=== PATIENT | male | born 1940 | race Caucasian/White ===

== ENCOUNTER 2018-11-12 06:15 | Inpatient (IN) | payer MEDICARE, OTHER, SELFPAY ==
[2018-10-09 13:18] VITALS: BMI 40.4
[2018-11-12] VITALS (21 sets, daily range): BP systolic 97–137; BP diastolic 54–74; PULSE 79–103; RESP 12–23; TEMP 36.1–36.8; O2SAT 88–100; BMI 40.4
--- NOTE | 2018-11-12 | DI.RAD.S_ITS ---
PROCEDURE: XR PELVIS 1-2V INDICATIONS: INTRAOPERATIVE RIGHT HIP REPLACEMENT TECHNIQUE: 1 view of the lower pelvis acquired. COMPARISON: [facility], CR, PELVIS W UNILATERAL HIP LEFT, 10/26/2015, 14:22. FINDINGS: Bones: Patient is status post interval right hip arthroplasty, with hardware components in expected positions. There is also a prior left total hip arthroplasty. The hip joint appears congruent. The visualized bony structures appear intact. Soft tissues: Overlying postoperative changes are noted. No suspicious soft tissue densities. IMPRESSION: Post surgical changes from right total hip arthroplasty with anatomic right hip alignment. Prior left hip arthroplasty with no gross abnormality seen. Dictated by: Enzo Cardenas M.D. on 11/12/2018 at 10:28 Approved by: Enzo Cardenas M.D. on 11/12/2018 at 10:29
--- NOTE | 2018-11-12 06:38 | DI.RAD.S_ITS ---
PROCEDURE: XR HIP W PEL IF DONE RT 2V INDICATIONS: prosthesis placement on right hip post operative TECHNIQUE: AP pelvis with lateral view(s) of the right hip(s). COMPARISON: None. FINDINGS: Bones: Patient is status post right total hip arthroplasty with anatomic right hip alignment. No gross hardware loosening or failure. No fracture or dislocation. Prior left hip arthroplasty is again seen with no gross abnormality. Soft tissues: The visualized bowel gas pattern is normal. No suspicious soft tissue calcifications. IMPRESSION: Post surgical changes from right total hip arthroplasty with anatomic right hip alignment. Dictated by: Enzo Cardenas M.D. on 11/12/2018 at 12:02 Approved by: Enzo Cardenas M.D. on 11/12/2018 at 12:03
[2018-11-12] MEDS: VANCOMYCIN 1,000 MG/200 ML FROZ.PIGGY 200 MG IV (07:00)
[2018-11-12] MEDS: LACTATED RINGERS 1,000 ML 42 ML IV (07:00)
[2018-11-12] MEDS: PREGABALIN 75 MG CAPSULE PO (07:03)
[2018-11-12] MEDS: ACETAMINOPHEN 325 MG TABLET 975 MG PO ×3 (07:03→21:33)
[2018-11-12] MEDS: MELOXICAM 7.5 MG TABLET 15 MG PO (07:26)
--- NOTE | 2018-11-12 07:55 | PM.PREOP ---
Pre-operative Note Interval Note Pre-op Check: Yes History & Physical Reviewed by Physician and Yes Exam Performed Changes: No
--- NOTE | 2018-11-12 07:55 | PM.OP.1 ---
Operative Date/Time/Diagnoses Date of procedure: 11/12/18 Time of procedure: 07:55 Pre-op diagnosis: right hip OA Post-op diagnosis: same Procedure & Clinicians Procedure: right total hip arthroplasty Same procedure as scheduled: Yes Indications: The patient has had progressively worsening right hip pain with radiographic changes consistent with arthritis. Non-operative management has failed and the patient has requested total hip replacement. The risks, benefits and alternatives to surgery were discussed with the patient prior to proceeding. Risks discussed included, but were not limited to, failure to relieve pain, leg length discrepancy, dislocation, stiffness, infection, nerve damage, deep venous thrombosis, pulmonary embolism, stroke, coma, heart attack, permanent paralysis and , as well as the potential need for eventual revision of the prosthetic. Surgeon: Barbara Corey Fiberglass Pipe Covering Supervisor: Estiven Bernard Anesthesia Type: General and Spinal Operative Notes Findings: Marked restricted range of motion, significant scar and adhesions, adequate stability Closure Type: primary Specimen(s): other (multiple cultures, PCR) Implants & Drains: [employer] R3 size 60, neutral 40 liner, +0 40 head, size 9 high offset anthology Applied: drain(s) Estimated Blood Loss (mL): 300 Blood products transfused: none Procedure in detail: The patient was seen in the pre-operative area, where the patient identified the right hip as the operative site and this was marked with my initials. The patient received pre-operative antibiotics and was taken to the operating room and placed on the operative table in the left lateral decubitus position after satisfactory anesthesia. A territory account executive out was performed. The right leg was prepared from the ankle to the iliac crest with ChloroPrep in the usual fashion and draped through sterile drapes. The hip was approached through an approximately 20 cm incision centered over the greater trochanter and curving gently posteriorly as it went proximally. This was carried sharply to the fascia jeri, which was divided and retracted with a self retaining retractor. The trochanteric bursa was excised with care being taken to avoid the sciatic nerve, which was identified and protected throughout the case. He had severe adhesions in his trochanteric bursa and marked thickening. The femur was meticulously mobilized from the overlying fascia. The short external rotators were incised and the capsulomuscular flap was raised and tagged for later repair. Piriformis was left intact. I meticulously mobilize the capsule and resected a portion of the labrum. The hip was dislocated, and a femoral neck osteotomy performed approximately 15 mm above the lesser trochanter. Retractors were placed around the femur. The canal was opened with a box cutting osteotome, followed by a T handled reamer and a lateralizing reamer. The chili pepper broach was then used, followed by sequential broaching until there was good stability of the broach in the femur. Retractors were placed to expose the acetabulum. The labrum and central soft tissues were removed. 2 retractors were used to retract the femur anteriorly. It was quite tight. The offset Reamer was used for the larger reamers. Reaming was performed initially going up in 2 mm increments, then 1 mm increments until good bite was obtained with an odd sized reamer. The cup 1 mm larger than the last reamer was then inserted using the appropriate anteversion guides. A trial neutral liner was placed. The broach was placed in the canal. A trial head and neck were then placed and the hip relocated and checked for leg length and stability. An intraoperative film confirmed the component position and no evidence of fracture. The patient was stable in the position of sleep, of squatting, and could be put through a range of motion with 45 degrees internal rotation without dislocation. At 90 degrees flexion, internal rotation to 60? was possible before dislocation. This was felt to be satisfactory and the appropriate components were opened, and the trials were removed. The acetabular liner was impacted into position. The final stem was then impacted into the prepared femoral canal. A brief Betadine soak was performed while trialing with head options. The hip was meticulously irrigated with normal saline. Finally the femoral head was impacted onto the stem. The acetabulum was cleared of all material and the hip relocated one final time. The capsulomuscular flap was then repaired to the greater trochanter though an awl hole using the tag sutures. The short external rotators were repaired with nonabsorbable sutures. A deep drain was placed and brought out anteriorly. The fascia jeri was closed with nonabsorbable sutures. The subcutaneous layer was closed with barbed sutures and SteriStrips. An Aquacel Ag dressing was applied and the patient was taken to recovery having tolerated the procedure well. Complications: none Condition: stable Disposition: Acute Care Plan for aftercare: The patient will be maintained on a standard total hip replacement protocol with weight bearing as tolerated and posterior hip precautions. The patient will receive Aspirin and sequential compression devices for DVT prophylaxis. The patient will be discharged home when safe for the home environment.
[2018-11-12] MEDS: CEFAZOLIN VIAL 3 GM in SODIUM CHLORIDE 0.9% 100 ML 200 ML IV ×2 (08:18→16:30)
[2018-11-12] MEDS: TRANEXAMIC ACID 1,000 MG VIAL 1000 MG INJ ×2 (08:30→10:28)
--- NOTE | 2018-11-12 08:57 | SUR.OPER ---
Lateral on padded OR bed. Gel axillary roll. Arms secured on padded armboard with pillow supporting top arm. Padded hip positioner braces x4 - anterior and posterior chest and pelvis. Additional gel pad used anterior pelvis. Gel pad under bottom leg from knee to foot and secured with tape over sheet.
[2018-11-12] MEDS: BUPIVACAINE 0.25% W/ EPI VIAL 50 ML INJ (09:09)
[2018-11-12] MEDS: BUPIVACAINE LIPOSOME 266 MG/20 ML VIAL INJ (09:12)
[2018-11-12] MEDS: POVIDONE-IODINE 15 ML, SODIUM CHLORIDE 0.9% 250 ML TOP (09:17)
[2018-11-12] MEDS: EPINEPHrine 1 MG/ML AMPUL IRR (09:29)
[2018-11-12] MEDS: ALBUTEROL/IPRATROPIUM 3 ML AMPUL INH (11:23)
[2018-11-12] MEDS: HYDROMORPHONE 2 MG INJ 0.5 MG IV ×2 (11:35→11:45)
[2018-11-12] MEDS: OXYCODONE IR 5 MG TABLET PO (11:46)
[2018-11-12] MEDS: LACTATED RINGERS 1,000 ML 125 ML IV (13:35)
[2018-11-12] MEDS: HYDROCORTISONE 2.5% CREAM 30 GM 1 APPLIC TOP (13:42)
--- NOTE | 2018-11-12 14:10 | PT.IIE ---
Current Diagnoses Morbid (severe) obesity due to excess calories (11/12/18) Obstructive sleep apnea (adult) (pediatric) (11/12/18) Chronic obstructive pulmonary disease, unspecified (11/12/18) Unspecified asthma, uncomplicated (11/12/18) Acute and chronic respiratory failure with hypoxia (11/12/18) Unilateral primary osteoarthritis, right hip (11/12/18) Cough (11/12/18) Shortness of breath (11/12/18) Encounter for other administrative examinations (11/12/18) Dependence on supplemental oxygen (11/12/18) Surgery Performed Operation Date: 11/12/18 07:45 Actual Procedures p Total Hip Arthroplasty(Right) - Barbara Corey MD Surgical History (Last Reviewed 11/12/18 @ 15:45 by Annmarie Rojas DO) H/O carpal tunnel repair (Acute) History of colonoscopy (Acute ~09/11/17) History of hernia repair (Acute) History of revision of total hip arthroplasty (Acute) S/P rotator cuff repair (Acute) Medical History (Last Reviewed 11/12/18 @ 15:45 by Annmarie Rojas DO) Acute on chronic respiratory failure with hypoxia (Acute) Anemia, iron deficiency (Acute) Aortic valve stenosis, moderate (Acute) Asthma (Acute) Atopic dermatitis (Acute) BPH (benign prostatic hyperplasia) (Acute) Bifascicular block (Acute) COPD (chronic obstructive pulmonary disease) (Acute) Cholelithiasis (Acute) Chronic kidney disease (CKD), stage III (moderate) (Acute) Colon polyps (Acute) Coronary artery calcification (Acute) Cough (Acute) DM type 2 (diabetes mellitus, type 2) (Acute) Discitis of thoracic region (Acute) Echocardiogram abnormal (Acute) Gout (Acute) Hip pain (Acute) Lung nodule (Acute) Lymph edema (Acute) Macular degeneration (Acute) Morbidly obese (Acute) Murmur (Acute) Opioid use disorder, moderate, in controlled environment, dependence (Acute) Osteoarthritis of hip (Acute) Osteoarthritis of knees, bilateral (Acute) Oxygen dependent (Acute) Pain medication agreement signed (Acute) Positive JINNY (antinuclear antibody) (Acute) Primary localized osteoarthrosis of pelvic region (Acute) Primary osteoarthritis of right hip (Acute) Prurigo nodularis (Acute) Seronegative rheumatoid arthritis (Acute) Shortness of breath (Acute) Sleep apnea treated with nocturnal BiPAP (Acute) Physical Therapy Inpatient Evaluation/Re-Eval M1 PT/OT-IP Prior Functional Status Start: 11/12/18 16:00 Freq: NEEDED Status: Active Protocol: Document 11/12/18 14:10 AB (Rec: 11/12/18 16:13 AB [id number]) Medical Review Prior Functional Status Medical History Reviewed Yes Communication able to make needs known Mobility and Gait stated that he is modified independent with all mobilities and ambulation using his hurry cane Social History Household Members spouse Living Arrangements House Number of Floors (Floors) 3 or More Floors Number of Stairs To Enter/Railing? pt stays on main level of the house; has 3 steps to enter with L rail ascending Home Environment Standard Height Toilet Tub/Shower Home Equipment Front Wheel Walker Bedside Commode Raised Toilet Seat Without Armrests Additional Social History Comment pt stated that he sleeps on his lift chair M2 PT-IP Current Condition Start: 11/12/18 16:00 Freq: NEEDED Status: Active Protocol: Document 11/12/18 14:10 AB (Rec: 11/12/18 16:13 AB [id number]) Physical Therapy Current Condition Current Condition Evaluation Date 11/12/18 Treatment Diagnosis s/p R JAYLON; difficulty in walking Onset Date 11/12/18 Precautions Posterior Hip Precautions No Hip Flexion > 90 degrees No Hip Internal Rotation No Hip Adduction Weight Bearing Status Weight Bearing Status Weight Bear as Tolerated M3 PT-IP Subjective Start: 11/12/18 16:00 Freq: NEEDED Status: Active Protocol: Document 11/12/18 14:10 AB (Rec: 11/12/18 16:13 AB [id number]) Subjective Physical Therapy Visit Type Type Initial Evaluation Visit Start Time 14:10 Visit Stop Time 15:57 Total Visit Minutes 60 Notes pt seen for split visit Number of GLUE JOINTER FEEDER Visits 0 Physical Therapy Visit Comments Patient Comments pt want to get up Therapy Pain Assessment Pain When Pain Assessed At Rest Pain Present Pain Present Pain Reported Location Right Hip Intensity 2 Scale Used Numeric (1 - 10) M4 PT-IP Mobility and Gait Start: 11/12/18 16:00 Freq: NEEDED Status: Active Protocol: Document 11/12/18 14:10 AB (Rec: 11/12/18 16:13 AB [id number]) PT-Bed Mobility Assessment Supine to Sit Supine to Sit Minimal Assistance PT-Transfer Assessment Sit to and From Stand Sit to and from Stand Minimal Assistance 1 Person Assistance Use of Upper Extremities Equipment Transfer Assistive Device Gait Belt Front Wheeled Walker Orthotic/Prosthetic Devices or Brace: No Transfers Transfer Destination Chair Transfer Technique pt ambulated and transferred to chair using FWW Transfer Ability Level of Assist Minimal Assistance 1 Person Assistance Use of Upper Extremities Comments Mobility Comments pt required min A for moving RLE to EOB. required min A for sit to stand and cues to maintain hip precautions. Gait Assessment Gait Gait Assistance Required: Contact Guard Assist Distance (Feet) 80 Able to Maintain Weight Bearing Status Yes During Gait Assistive Devices Assistive Device Gait Belt Front Wheeled Walker Orthotic/Prosthetic Devices or Brace: No Gait Deviations General Gait Pattern Antalgic Decreased Stride Length Decreased Feet Clearance Factors Limiting Gait Function Factors Limiting Gait Function Decreased Activity Tolerance Decreased Strength Limited Range of Motion Poor Balance Poor Safety Awareness PT-Balance Assessment Sitting Balance and Reactions Static Sitting Balance Ability Good Dynamic Sitting Balance Ability Good Standing Balance and Reactions Static Standing Balance Ability Fair Dynamic Standing Balance Ability Fair Device Used FWW M5 PT-IP Objective Assessments Start: 11/12/18 16:00 Freq: NEEDED Status: Active Protocol: Document 11/12/18 14:10 AB (Rec: 11/12/18 16:13 AB [id number]) Orientation Orientation/Cognition Level of Alertness Alert Orientation Name Age Birthday Month Date Year Day of Week Place Situation Safety Awareness Decreased Safety Awareness Memory Description Short Term Impaired Comments requires cues to recall hip precautions Gross Range of Motion Lower Extremity ROM Assessment Right Impaired Strength Lower Extremity Strength Assessment Right Impaired Hip 4-/5 Knee 3+/5 Sensation Assessment Sensation Gross Sensation WNL Muscle Tone Muscle Tone WNL Yes M6 PT-IP Treatment Start: 11/12/18 16:00 Freq: NEEDED Status: Active Protocol: Document 11/12/18 14:10 AB (Rec: 11/12/18 16:13 AB [id number]) Physical Therapy Treatment Education Education Provided Precautions Weight Bearing Status Post-Op Packet Safety M7 PT-IP Assessment and Plan Start: 11/12/18 16:00 Freq: NEEDED Status: Active Protocol: Document 11/12/18 14:10 AB (Rec: 11/12/18 16:13 AB [id number]) PT Summary Assessment and Plan Potential Rehabilitation Potential Fair Status of Condition at Evaluation Stable Summary Impairments Pain ROM Strength Balance Coordination Sensation Tone Cognition Bed Mobility Transfers Gait Activity Tolerance Assessment Summary pt requiring CGA to min A with transfers and ambulation and will likely progress during hospital stay. pt stated that he is set up with outpt PT. Stair climbing will be completed prior to d/c and if able to complete safely, pt may go home with spouse to assist him. Goals Bed Mobility Goal Standby Assistance Transfer Goal Standby Assistance Front Wheeled Walker Gait Goal Standby Assistance Front Wheel Walker Gait Distance 200 Other Goals up/down 3 steps with L rail ascending Days to Meet Goals 3 Frequency of Treatment Frequency Of Treatment Twice a Day Treatment Plan Physical Therapy Treatment Plan Bed Mobility Training Transfer Training Gait Training Therapeutic Exercise Balance Retraining Post Op Education Discharge Planning Hot or Cold Pack Neuromuscular Re-ed Coordination Retraining Manual Therapy Other Recommendations and Next Treatment ambulation; stair climbing Focus Recommendations To Nursing Amount of Assist Needed 1 Person Assist Discharge Recommendations PT Discharge Recommendations Home with Assistance Outpatient PT
--- NOTE | 2018-11-12 15:39 | PM.CN ---
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 Postoperatively, the patient is resting in bed comfortably and in no acute distress. He denies pain. He received both a spinal block and general anesthesia. He denies headache, any new visual disturbances, shortness of breath, chest pain, abdominal pain, nausea, vomiting, fever, chills, dysuria (although he has not voided postoperatively), diarrhea or constipation. He does endorse a mild scratchy throat. He has no other complaints at this time. [facility] Medical History Acute on chronic respiratory failure with hypoxia (Acute) Anemia, iron deficiency (Acute) Aortic valve stenosis, moderate (Acute) Asthma (Acute) Atopic dermatitis (Acute) BPH (benign prostatic hyperplasia) (Acute) Bifascicular block (Acute) COPD (chronic obstructive pulmonary disease) (Acute) Cholelithiasis (Acute) Chronic kidney disease (CKD), stage III (moderate) (Acute) Colon polyps (Acute) Coronary artery calcification (Acute) Cough (Acute) DM type 2 (diabetes mellitus, type 2) (Acute) Discitis of thoracic region (Acute) Echocardiogram abnormal (Acute) Gout (Acute) Hip pain (Acute) Lung nodule (Acute) Lymph edema (Acute) Macular degeneration (Acute) Morbidly obese (Acute) Murmur (Acute) Opioid use disorder, moderate, in controlled environment, dependence (Acute) Osteoarthritis of hip (Acute) Osteoarthritis of knees, bilateral (Acute) Oxygen dependent (Acute) Pain medication agreement signed (Acute) Positive JINNY (antinuclear antibody) (Acute) Primary localized osteoarthrosis of pelvic region (Acute) Primary osteoarthritis of right hip (Acute) Prurigo nodularis (Acute) Seronegative rheumatoid arthritis (Acute) Shortness of breath (Acute) Sleep apnea treated with nocturnal BiPAP (Acute) Surgical History H/O carpal tunnel repair (Acute) History of colonoscopy (Acute ~09/11/17) History of hernia repair (Acute) History of revision of total hip arthroplasty (Acute) S/P rotator cuff repair (Acute) Family History Mother No problems noted. Father No problems noted. Sister No problems noted. Sister No problems noted. Brother No problems noted. Social History household members: spouse Smoking Status: Former smoker alcohol intake: current Meds Home Medications Medication Instructions Recorded Confirmed Type albuterol sulfate 2 puff INHALATION PRN PRN 10/09/18 11/12/18 History allopurinol 300 mg PO DAILY 10/09/18 11/12/18 History aspirin 81 mg PO DAILY 10/09/18 11/12/18 History calcium citrate 250 mg PO BID 10/09/18 11/12/18 History diphenhydramine HCl 50 mg PO BEDTIME PRN 10/09/18 11/12/18 History furosemide 40 mg PO DAILY 10/09/18 11/12/18 History glipizide 5 mg PO BID 10/09/18 11/12/18 History hydrocodone-acetaminophen 1 tab PO Q6H PRN 10/09/18 11/12/18 History hydrocortisone 1 applic TOPICAL BID 10/09/18 11/12/18 History insulin aspart U-100 6 units SUBCUT SEEINSTR 10/09/18 11/12/18 History insulin glargine 10 unit SUBCUT QAM 10/09/18 11/12/18 History insulin glargine 20 unit SUBCUT QPM 10/09/18 11/12/18 History multivitamin 1 tab PO DAILY 10/09/18 11/12/18 History simvastatin 40 mg PO QPM 10/09/18 11/12/18 History tamsulosin 0.4 mg PO BEDTIME 10/09/18 11/12/18 History umeclidinium-vilanterol [Anoro 1 inh INHALATION Q24H 10/09/18 11/12/18 History Ellipta] vitamins A,C,S-uecm-zlnjme 2 tab PO BID 10/09/18 11/12/18 History [PreserVision AREDS] Allergies Allergy/AdvReac Type Severity Reaction Status Date / Time sulfasalazine [SULFASALAZINE] Allergy Intermediate RASH - Verified 11/12/18 07:00 POSSIBLE PER PT STATES HE CAN TAKE SULFA DRUGS insulin glargine AdvReac Unknown Shortness Verified 11/12/18 07:00 [From Victor Manuel Nava U-100 of breath Insulin] Review of Systems Review of Systems A 10 system comprehensive review of systems was conducted with the patient and found to be negative except as above in the History of Present Illness. Exam Vital Signs (past 8 hours): - 11/12/18 10:56 11/12/18 11:01 11/12/18 11:06 Temperature 97.8 F Pulse Rate 88 90 93 H Respiratory Rate 22 23 16 Blood Pressure 97/61 100/59 L 104/63 Pulse Oximetry 88 L 94 95 11/12/18 11:11 11/12/18 11:16 11/12/18 11:20 Temperature Pulse Rate 90 97 H 94 H Respiratory Rate 16 13 16 Blood Pressure 101/66 105/68 Pulse Oximetry 96 97 95 11/12/18 11:21 11/12/18 11:35 11/12/18 11:45 Temperature Pulse Rate 91 H 94 H 93 H Respiratory Rate 13 14 16 Blood Pressure 108/67 107/69 116/68 Pulse Oximetry 98 98 98 11/12/18 11:55 11/12/18 12:14 11/12/18 12:18 Temperature 97.8 F 97.8 F Pulse Rate 94 H 90 90 Respiratory Rate 14 20 19 Blood Pressure 110/66 129/57 L 129/57 L Pulse Oximetry 98 97 98 11/12/18 12:50 11/12/18 13:00 11/12/18 13:22 Temperature Pulse Rate 103 H 93 H Respiratory Rate 13 12 Blood Pressure 101/54 L 129/72 Pulse Oximetry 100 96 94 11/12/18 14:33 11/12/18 14:49 Temperature Pulse Rate 89 Respiratory Rate 23 Blood Pressure 117/68 Pulse Oximetry 91 Oxygen Delivery Method Room Air Oxygen Flow Rate 0 Narrative Exam Narrative: General: Elderly gentleman resting in bed and in no acute distress, appears comfortable and in good spirits, well-developed, well-nourished, appropriately interactive HEENT: Normocephalic, atraumatic. External ears without defect. Pupils equal, round, and reactive to light. Anicteric sclerae, moist conjunctivae, and no lid lag. Oropharynx free of erythema and cobble stoning with moist mucosa. Poor dentition. Neck: Supple with full range of motion. No jugular venous distension. No bruits. No lymphadenopathy or thyromegaly. Cardiovascular: Regular rate and rhythm with holosystolic murmur at left sternal border radiating to carotids bilaterally. No rubs or gallops appreciated. Pulmonary: Clear to auscultation bilaterally with fine crackles at bases bilaterally. No wheezes, or rhonchi. Normal respiratory effort with no use of accessory muscles. Abdomen: Bowel tones present. Soft, obese, nontender, nondistended. No hepatosplenomegaly or masses appreciated. Small umbilical hernia that is reducible. Extremities: No clubbing or cyanosis. Mild bilateral nonpitting lower extremity edema to knees bilaterally. Skin: Normal temperature, turgor, and texture; no rash or ulcers. Scattered subcutaneous nodules bilaterally on lower extremities. Neurological: Cranial nerves grossly intact. Normal muscle strength, tone, and bulk. Reflexes, coordination, and sensory function within normal limits. Psychiatric: Normal mood and affect. Alert and oriented to person, place, and time. 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 1. Right hip osteoarthritis status post total hip arthroplasty, present on admission. Active. -Received preop and postoperative antibiotics with Cefazolin. -Continue as needed pain medication. -Continue aggressive physical therapy. -Will defer to Orthopedic surgery when to initiate DVT prophylaxis with lovenox versus aspirin. 2. Moderate aortic stenosis with bifascicular heart block, present on admission. Presumed stable. -Continue cardiac meds including aspirin 81 mg daily, furosemide 40 mg daily, and simvastatin 40 mg at bedtime. -Continue to monitor closely on telemetry. 3. Probable COPD and obstructive sleep apnea, present on admission. Stable. -Continue BiPAP with 4 L O2 bled in nocturnally while sleeping. -Continue nebs including albuterol every 4 hr as needed and Anoro Ellipta 1 puff daily. 4. Diabetes mellitus type 2, insulin using, present on admission. Presume stable. -Continue Lantus 10 units every morning and 20 units every night. 5. Chronic kidney disease, present on admission. Presumed stable. -Baseline creatinine 1.8-2.0. Patient is followed in the outpatient setting by Dr. Norton of Nephrology. -Monitor creatinine daily. -Avoid nephrotoxinc agents. 6. Anemia of chronic disease, present on admission. Stable. -Secondary to chronic kidney disease. -Likely to worsen postoperatively. -Continue to monitor hemoglobin and hematocrit daily. 7. Gout, present on admission. Stable. -Continue allopurinol 300 mg daily. 8. BPH, present on admission. Stable. -Continue tamsulosin 0.4 mg at bedtime. 9. Prurigo nodularis, present on admission. Stable. -Continue hydrocortisone cream as needed. 10. Morbid obesity, present on admission. Stable. -BMI 40.4. -Ordered nutritional consult. Thank you for consulting our services will continue to follow the patient along with you.
[2018-11-12 15:40] LABS: Add Manual Diff / Slide Review NO; Basophils Percent Auto 0.6 % (0-2); Eosinophils Percent Auto 0.8 % (2-4); Hematocrit 29.2 % (41-53); Hemoglobin 9.6 g/dL (13.5-17.5); Lymphocytes Percent Auto 10.3 % (25-40); Mean Corpuscular HGB Conc 32.8 % (30-36); Mean Corpuscular Hemoglobin 32.4 PG (26-34); Mean Corpuscular Volume 98.8 fL (80-100); Monocytes Percent Auto 6.7 % (3-14); Neutrophils Absolute Auto 8400 /uL (1500-7000); Neutrophils Percent Auto 81.6 % (50-75); Platelet Count 169 X10^3/uL (150-400); Red Blood Cell Count 2.95 X10^6/uL (4.5-5.9); Red Cell Distribution Width 17.5 % (11.6-14.8); White Blood Cell Count 10.3 X10^3/uL (4.5-11.0)
--- NOTE | 2018-11-12 15:45 | P.CONS_ITS ---
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 Postoperatively, the patient is resting in bed comfortably and in no acute distress. He denies pain. He received both a spinal block and general anesthesia. He denies headache, any new visual disturbances, shortness of breath, chest pain, abdominal pain, nausea, vomiting, fever, chills, dysuria ( although he has not voided postoperatively), diarrhea or constipation. He does endorse a mild scratchy throat. He has no other complaints at this time. [facility] Medical History Acute on chronic respiratory failure with hypoxia (Acute) Anemia, iron deficiency (Acute) Aortic valve stenosis, moderate (Acute) Asthma (Acute) Atopic dermatitis (Acute) BPH (benign prostatic hyperplasia) (Acute) Bifascicular block (Acute) COPD (chronic obstructive pulmonary disease) (Acute) Cholelithiasis (Acute) Chronic kidney disease (CKD), stage III (moderate) (Acute) Colon polyps (Acute) Coronary artery calcification (Acute) Cough (Acute) DM type 2 (diabetes mellitus, type 2) (Acute) Discitis of thoracic region (Acute) Echocardiogram abnormal (Acute) Gout (Acute) Hip pain (Acute) Lung nodule (Acute) Lymph edema (Acute) Macular degeneration (Acute) Morbidly obese (Acute) Murmur (Acute) Opioid use disorder, moderate, in controlled environment, dependence (Acute) Osteoarthritis of hip (Acute) Osteoarthritis of knees, bilateral (Acute) Oxygen dependent (Acute) Pain medication agreement signed (Acute) Positive JINNY (antinuclear antibody) (Acute) Primary localized osteoarthrosis of pelvic region (Acute) Primary osteoarthritis of right hip (Acute) Prurigo nodularis (Acute) Seronegative rheumatoid arthritis (Acute) Shortness of breath (Acute) Sleep apnea treated with nocturnal BiPAP (Acute) Surgical History H/O carpal tunnel repair (Acute) History of colonoscopy (Acute ~09/11/17) History of hernia repair (Acute) History of revision of total hip arthroplasty (Acute) S/P rotator cuff repair (Acute) Family History Mother No problems noted. Father No problems noted. Sister No problems noted. Sister No problems noted. Brother No problems noted. Social History household members: spouse Smoking Status: Former smoker alcohol intake: current Meds Home Medications Medication Instructions Recorded Confirmed Type albuterol sulfate 2 puff INHALATION PRN PRN 10/09/18 11/12/18 History allopurinol 300 mg PO DAILY 10/09/18 11/12/18 History aspirin 81 mg PO DAILY 10/09/18 11/12/18 History calcium citrate 250 mg PO BID 10/09/18 11/12/18 History diphenhydramine HCl 50 mg PO BEDTIME PRN 10/09/18 11/12/18 History furosemide 40 mg PO DAILY 10/09/18 11/12/18 History glipizide 5 mg PO BID 10/09/18 11/12/18 History hydrocodone-acetaminophen 1 tab PO Q6H PRN 10/09/18 11/12/18 History hydrocortisone 1 applic TOPICAL BID 10/09/18 11/12/18 History insulin aspart U-100 6 units SUBCUT SEEINSTR 10/09/18 11/12/18 History insulin glargine 10 unit SUBCUT QAM 10/09/18 11/12/18 History insulin glargine 20 unit SUBCUT QPM 10/09/18 11/12/18 History multivitamin 1 tab PO DAILY 10/09/18 11/12/18 History simvastatin 40 mg PO QPM 10/09/18 11/12/18 History tamsulosin 0.4 mg PO BEDTIME 10/09/18 11/12/18 History umeclidinium-vilanterol [Anoro 1 inh INHALATION Q24H 10/09/18 11/12/18 History Ellipta] vitamins A,C,N-[id number]-[id number] 2 tab PO BID 10/09/18 11/12/18 History [PreserVision AREDS] Allergies Allergy/AdvReac Type Severity Reaction Status Date / Time sulfasalazine [SULFASALAZINE] Allergy Intermediate RASH - Verified 11/12/18 07: 00 POSSIBLE PER PT STATES HE CAN TAKE SULFA DRUGS insulin glargine AdvReac Unknown Shortness Verified 11/12/18 07:00 [From Victor Manuel Nava U-100 of breath Insulin] Review of Systems Review of Systems A 10 system comprehensive review of systems was conducted with the patient and found to be negative except as above in the History of Present Illness. Exam Vital Signs (past 8 hours): - 11/12/18 10:56 11/12/18 11:01 11/12/18 11:06 Temperature 97.8 F Pulse Rate 88 90 93 H Respiratory Rate 22 23 16 Blood Pressure 97/61 100/59 L 104/63 Pulse Oximetry 88 L 94 95 11/12/18 11:11 11/12/18 11:16 11/12/18 11:20 Temperature Pulse Rate 90 97 H 94 H Respiratory Rate 16 13 16 Blood Pressure 101/66 105/68 Pulse Oximetry 96 97 95 11/12/18 11:21 11/12/18 11:35 11/12/18 11:45 Temperature Pulse Rate 91 H 94 H 93 H Respiratory Rate 13 14 16 Blood Pressure 108/67 107/69 116/68 Pulse Oximetry 98 98 98 11/12/18 11:55 11/12/18 12:14 11/12/18 12:18 Temperature 97.8 F 97.8 F Pulse Rate 94 H 90 90 Respiratory Rate 14 20 19 Blood Pressure 110/66 129/57 L 129/57 L Pulse Oximetry 98 97 98 11/12/18 12:50 11/12/18 13:00 11/12/18 13:22 Temperature Pulse Rate 103 H 93 H Respiratory Rate 13 12 Blood Pressure 101/54 L 129/72 Pulse Oximetry 100 96 94 11/12/18 14:33 11/12/18 14:49 Temperature Pulse Rate 89 Respiratory Rate 23 Blood Pressure 117/68 Pulse Oximetry 91 Oxygen Delivery Method Room Air Oxygen Flow Rate 0 Narrative Exam Narrative: General: Elderly gentleman resting in bed and in no acute distress, appears comfortable and in good spirits, well-developed, well- nourished, appropriately interactive HEENT: Normocephalic, atraumatic. External ears without defect. Pupils equal, round, and reactive to light. Anicteric sclerae, moist conjunctivae, and no lid lag. Oropharynx free of erythema and cobble stoning with moist mucosa. Poor dentition. Neck: Supple with full range of motion. No jugular venous distension. No bruits. No lymphadenopathy or thyromegaly. Cardiovascular: Regular rate and rhythm with holosystolic murmur at left sternal border radiating to carotids bilaterally. No rubs or gallops appreciated. Pulmonary: Clear to auscultation bilaterally with fine crackles at bases bilaterally. No wheezes, or rhonchi. Normal respiratory effort with no use of accessory muscles. Abdomen: Bowel tones present. Soft, obese, nontender, nondistended. No hepatosplenomegaly or masses appreciated. Small umbilical hernia that is reducible. Extremities: No clubbing or cyanosis. Mild bilateral nonpitting lower extremity edema to knees bilaterally. Skin: Normal temperature, turgor, and texture; no rash or ulcers. Scattered subcutaneous nodules bilaterally on lower extremities. Neurological: Cranial nerves grossly intact. Normal muscle strength, tone, and bulk. Reflexes, coordination, and sensory function within normal limits. Psychiatric: Normal mood and affect. Alert and oriented to person, place, and time. 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 1. Right hip osteoarthritis status post total hip arthroplasty, present on admission. Active. -Received preop and postoperative antibiotics with Cefazolin. -Continue as needed pain medication. -Continue aggressive physical therapy. -Will defer to Orthopedic surgery when to initiate DVT prophylaxis with lovenox versus aspirin. 2. Moderate aortic stenosis with bifascicular heart block, present on admission. Presumed stable. -Continue cardiac meds including aspirin 81 mg daily, furosemide 40 mg daily , and simvastatin 40 mg at bedtime. -Continue to monitor closely on telemetry. 3. Probable COPD and obstructive sleep apnea, present on admission. Stable. -Continue BiPAP with 4 L O2 bled in nocturnally while sleeping. -Continue nebs including albuterol every 4 hr as needed and Anoro Ellipta 1 puff daily. 4. Diabetes mellitus type 2, insulin using, present on admission. Presume stable. -Continue Lantus 10 units every morning and 20 units every night. 5. Chronic kidney disease, present on admission. Presumed stable. -Baseline creatinine 1.8-2.0. Patient is followed in the outpatient setting by Dr. Norton of Nephrology. -Monitor creatinine daily. -Avoid nephrotoxinc agents. 6. Anemia of chronic disease, present on admission. Stable. -Secondary to chronic kidney disease. -Likely to worsen postoperatively. -Continue to monitor hemoglobin and hematocrit daily. 7. Gout, present on admission. Stable. -Continue allopurinol 300 mg daily. 8. BPH, present on admission. Stable. -Continue tamsulosin 0.4 mg at bedtime. 9. Prurigo nodularis, present on admission. Stable. -Continue hydrocortisone cream as needed. 10. Morbid obesity, present on admission. Stable. -BMI 40.4. -Ordered nutritional consult. Thank you for consulting our services will continue to follow the patient along with you.
[2018-11-12] MEDS: SIMVASTATIN 40 MG TABLET PO (16:30)
--- NOTE | 2018-11-12 19:38 | PC.NURSE ---
1914- Patient only voided 200ml urine since noon. Bladder scan shows greater than 900ml in bladder. Straight cathed for 650ml. Patient tolerated well.
[2018-11-12] MEDS: ASPIRIN EC 81 MG TABLET PO (21:34)
[2018-11-12] MEDS: DOCUSATE 100 MG CAPSULE PO (21:34)
[2018-11-12] MEDS: INSULIN GLARGINE 100 UNIT/ML 3ML PEN 20 UNIT SUBCUT (21:35)
[2018-11-12] MEDS: TAMSULOSIN 0.4 MG CAPSULE PO (21:36)
[2018-11-13] MEDS: CEFAZOLIN VIAL 3 GM in SODIUM CHLORIDE 0.9% 100 ML 200 ML IV (00:42)
[2018-11-13 02:53] VITALS: O2SAT 95
[2018-11-13 04:34] VITALS: BP 123/65; PULSE 81; RESP 20; TEMP 36.4; O2SAT 94
[2018-11-13 05:02] LABS: Add Manual Diff / Slide Review NO; Basophils Percent Auto 0.3 % (0-2); Hematocrit 26.8 % (41-53); Hemoglobin 8.9 g/dL (13.5-17.5); Lymphocytes Percent Auto 13.5 % (25-40); Mean Corpuscular HGB Conc 33.2 % (30-36); Mean Corpuscular Volume 99.4 fL (80-100); Neutrophils Absolute Auto 6100 /uL (1500-7000); Neutrophils Percent Auto 76.2 % (50-75); Platelet Count 159 X10^3/uL (150-400); Red Cell Distribution Width 17.4 % (11.6-14.8)
[2018-11-13 05:06] LABS: Alanine Aminotransferase 25 IU/L (21-72); Albumin 3.3 g/dL (3.5-5.0); Alkaline Phosphatase 58 U/L (38-126); Aspartate Aminotransferase 47 IU/L (17-59); BUN Creatinine Ratio 17.8 (6-22); Bilirubin Total 0.3 mg/dL (0.2-1.3); Blood Urea Nitrogen 32 mg/dL (9-20); Calcium 8.3 mg/dL (8.4-10.2); Carbon Dioxide 28 mmol/L (22-32); Chloride 102 mmol/L (98-107); Estimated Glomerular Filt Rate 36.5 mL/min (>60); Globulin 3.2 g/dL (1.7-4.1); Glucose 112 mg/dL (80-110); HEMOLYSIS < 15 (0-50); Potassium 4.7 mmol/L (3.4-5.1); Sodium 139 mmol/L (137-145); Total Protein 6.5 g/dL (6.3-8.2)
[2018-11-13 07:55] VITALS: BP 129/67; PULSE 86; RESP 18; TEMP 37.4; O2SAT 98
[2018-11-13] MEDS: ACETAMINOPHEN 325 MG TABLET 975 MG PO ×2 (07:59→14:31)
[2018-11-13] MEDS: OXYCODONE IR 5 MG TABLET PO ×3 (07:59→14:33)
[2018-11-13 08:49] VITALS: O2SAT 94
[2018-11-13] MEDS: DOCUSATE 100 MG CAPSULE PO (10:03)
[2018-11-13] MEDS: HYDROCORTISONE 2.5% CREAM 30 GM 1 APPLIC TOP (10:03)
[2018-11-13] MEDS: FUROSEMIDE 40 MG TABLET PO (10:05)
[2018-11-13] MEDS: ASPIRIN EC 81 MG TABLET PO (10:06)
[2018-11-13] MEDS: INSULIN GLARGINE 100 UNIT/ML 3ML PEN 10 UNIT SUBCUT (10:06)
[2018-11-13] MEDS: ALLOPURINOL 300 MG TABLET PO (10:06)
[2018-11-13] MEDS: MULTIVITAMIN 1 TABLET 1 TAB PO (10:06)
[2018-11-13] MEDS: UMECLIDINIUM/VILANTEROL 62.5/2 14 PUFF INHALER INH (10:07)
--- NOTE | 2018-11-13 11:03 | P.PN_ITS ---
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 Overnight the patient was stable. He is slightly more anemic today which is to be expected after a total hip replacement. He participated in physical therapy postoperatively and was able to weightbear/toe touch in the room. Today the patient is resting in bed comfortably and in no acute distress. He denies headache, sore throat, cough, shortness of breath, chest pain, abdominal pain, nausea, vomiting, fever, chills, dysuria, diarrhea or constipation. He reports pain after his spinal block wore off. He reports his pain level is at a + 0 out of 10 after as needed pain medication. He is voiding without difficulty. He has not had a bowel movement postoperatively but is flatulence. He continues to work with physical therapy. Exam Vital Signs (past 8 hours): - 11/13/18 04:34 11/13/18 07:55 11/13/18 08:49 Temperature 97.5 F L 99.4 F Pulse Rate 81 86 Respiratory Rate 20 18 Blood Pressure 123/65 129/67 Pulse Oximetry 94 98 94 Oxygen Delivery Method Room Air Oxygen Flow Rate 0 Narrative Exam Narrative: General: Elderly gentleman resting in bed and in no acute distress, appears comfortable and in good spirits, well-developed, well- nourished, appropriately interactive HEENT: Normocephalic, atraumatic. External ears without defect. Pupils equal, round, and reactive to light. Anicteric sclerae, moist conjunctivae, and no lid lag. Oropharynx free of erythema and cobble stoning with moist mucosa. Poor dentition. Neck: Supple with full range of motion. No jugular venous distension. No bruits. No lymphadenopathy or thyromegaly. Cardiovascular: Regular rate and rhythm with holosystolic murmur at left sternal border radiating to carotids bilaterally. No rubs, or gallops appreciated. Pulmonary: Clear to auscultation bilaterally with fine crackles at bases. No wheezes, or rhonchi. Normal respiratory effort with no use of accessory muscles. Abdomen: Bowel tones present. Soft, obese, nontender, nondistended. No hepatosplenomegaly or masses appreciated. Small umbilical hernia that is reducible. Extremities: No clubbing or cyanosis. Mild bilateral non-pitting lower extremity edema to knees bilaterally. Skin: Normal temperature, turgor, and texture; no rash or ulcers. Scattered subcutaneous nodules bilaterally on lower extremities. Neurological: Cranial nerves grossly intact. Psychiatric: Normal mood and affect. Alert and oriented to person, place, and time. Objective Labs Result Diagrams: 11/13/18 04:35 11/13/18 04:35 Labs: Laboratory Results - last 24 hr 11/12/18 11/13/18 11/13/18 15:08 04:35 04:35 WBC 10.3 8.0 RBC 2.95 L 2.70 L Hgb 9.6 L 8.9 L Hct 29.2 L 26.8 L MCV 98.8 99.4 MCH 32.4 33.0 MCHC 32.8 33.2 RDW 17.5 H 17.4 H Plt Count 169 159 Neut % (Auto) 81.6 H 76.2 H Lymph % (Auto) 10.3 L 13.5 L [place] % (Auto) 6.7 7.0 Eos % (Auto) 0.8 L 3.0 Baso % (Auto) 0.6 0.3 Neut # (Auto) 8400 H 6100 Sodium 139 Potassium 4.7 Chloride 102 Carbon Dioxide 28 BUN 32 H Creatinine 1.80 H Estimated GFR 36.5 L BUN/Creatinine Ratio 17.8 Glucose 112 H Calcium 8.3 L Total Bilirubin 0.3 AST 47 ALT 25 Alkaline Phosphatase 58 Total Protein 6.5 Albumin 3.3 L Globulin 3.2 Albumin/Globulin Ratio 1.0 Assessment & Plan Plan: Assessment/Plan Narrative: Brian Link is an 78-year-old male with a past medical history significant for diabetes mellitus type 2, insulin using, chronic kidney disease stage 3, hyperlipidemia, unclear lung disease and obstructive sleep apnea on BiPAP with 4 L of O2 nocturnally, morbid obesity, and 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 He was admitted for planned surgery for osteoarthritis of right hip now status post right total hip replacement. Hospital Medicine was consulted for management of medical problems. 1. Right hip osteoarthritis status post total hip arthroplasty, present on admission. Active. -Received preop and postoperative antibiotics with Cefazolin. -Continue as needed pain medication. -Continue aggressive physical therapy. -Will defer VTE prophylaxis to Orthopedic surgery, currently on aspirin 81 mg twice daily. 2. Moderate aortic stenosis with bifascicular heart block, present on admission. Presumed stable. -Continue cardiac meds including aspirin 81 mg daily, furosemide 40 mg daily , and simvastatin 40 mg at bedtime. Followed outpatient by Dr. Oliva of Cardiology. -Continue to monitor closely on telemetry. 3. Probable COPD and obstructive sleep apnea, present on admission. Stable. -Continue BiPAP with 4 L O2 bled in nocturnally while sleeping. -Continue nebs including albuterol every 4 hr as needed and Anoro Ellipta 1 puff daily. 4. Diabetes mellitus type 2, insulin using, present on admission. Presume stable. -Continue Lantus 10 units every morning and 20 units every night. 5. Chronic kidney disease, present on admission. Presumed stable. -Baseline creatinine 1.8-2.0. Patient is followed in the outpatient setting by Dr. Norton of Nephrology. -Monitor creatinine daily. -Avoid nephrotoxinc agents. 6. Anemia of chronic disease, present on admission. Stable. -Secondary to chronic kidney disease and now acute blood loss. -Hemoglobin trending down as to be expected postoperatively from total hip replacement. -Continue to monitor hemoglobin and hematocrit daily. 7. Gout, present on admission. Stable. -Continue allopurinol 300 mg daily. 8. BPH, present on admission. Stable. -Continue tamsulosin 0.4 mg at bedtime. 9. Prurigo nodularis, present on admission. Stable. -Continue hydrocortisone cream as needed. 10. Morbid obesity, present on admission. Stable. -BMI 40.4. -Ordered nutritional consult. Thank you for consulting our services will continue to follow the patient along with you. Quality VTE Deep Vein Thrombosis/Pulmonary Embolism Present on Admission: No
--- NOTE | 2018-11-13 11:58 | PM.DS.1 ---
History of Present Illness Date Patient Seen: 11/13/18 Time Patient Seen: 10:19 Chief complaint: [id number] Narrative: Patient is seen bedside status post right total hip replacement on 11/11/[address] Corey. Patient is doing well, he has been up now with physical therapy and his pain is controlled. His vital signs have been stable overnight. He denies chest pain shortness of breath or calf pain. He would like to go home today. Discharge Providers Date of admission: 11/12/18 06:15 Consults: 10/09/18 15:03 Consult to Respiratory Therapy Evaluate & Treat Comment: NELSY on BiPAP - Will bring Physician Instructions: Evaluate and treat Consult to Personnel Scheduler Routine Comment: Pain med contract 11/12/18 06:38 Consult to Anesthesiology Routine Comment: Consulting Provider: Anesthesiologist Reason for consultation: Regional block for post operative pain control 11/12/18 07:26 Consult to Respiratory Therapy Evaluate & Treat Comment: Physician Instructions: Evaluate and treat 11/12/18 12:50 Consult to Discharge Planning Routine Comment: Consult to Physical Therapy Evaluate & Treat Comment: oob today in a chair Physician Instructions: post op JAYLON protocol Consult to Respiratory Therapy Evaluate & Treat Comment: Physician Instructions: Evaluate and treat Consult to Personnel Scheduler Routine Comment: 11/12/18 14:50 Consult to Respiratory Therapy Evaluate & Treat Comment: Physician Instructions: Evaluate and treat Discharge provider: Jenny Hunt PA-C Discharge Date: 11/13/18 Summary Discharge Diagnosis: 1. Primary osteoarthritis of the right hip 2. Morbid obesity Hospital Course: Patient was admitted to the hospital status post right total hip replacement with Dr. Corey on 11/11/2018. Patient tolerated the procedure well with no major complications. Patient was transferred to the ICU due to his multiple medical comorbidities for observation. He was stable throughout his stay. He was seen by Physical therapy who recommended that he be discharged home. He is stable for discharge on 11/12/2018 Exam Vital Signs (past 8 hours): - 11/13/18 04:34 11/13/18 07:55 11/13/18 08:49 Temperature 97.5 F L 99.4 F Pulse Rate 81 86 Respiratory Rate 20 18 Blood Pressure 123/65 129/67 Pulse Oximetry 94 98 94 Oxygen Delivery Method Room Air Oxygen Flow Rate 0 Narrative Exam Narrative: Well-developed well-nourished no acute distress. Alert and oriented x3. Ran dressing was placed over top of the Hemovac drains so when the Hemovac drain was removed the ran dressing was replaced. Mild pain with movement. Calf is soft and compressible and right lower extremity is neurovascularly intact. Objective Labs Result Diagrams: 11/13/18 04:35 11/13/18 04:35 Labs: Laboratory Results - last 24 hr 11/12/18 11/13/18 11/13/18 15:08 04:35 04:35 WBC 10.3 8.0 RBC 2.95 L 2.70 L Hgb 9.6 L 8.9 L Hct 29.2 L 26.8 L MCV 98.8 99.4 MCH 32.4 33.0 MCHC 32.8 33.2 RDW 17.5 H 17.4 H Plt Count 169 159 Neut % (Auto) 81.6 H 76.2 H Lymph % (Auto) 10.3 L 13.5 L [place] % (Auto) 6.7 7.0 Eos % (Auto) 0.8 L 3.0 Baso % (Auto) 0.6 0.3 Neut # (Auto) 8400 H 6100 Sodium 139 Potassium 4.7 Chloride 102 Carbon Dioxide 28 BUN 32 H Creatinine 1.80 H Estimated GFR 36.5 L BUN/Creatinine Ratio 17.8 Glucose 112 H Calcium 8.3 L Total Bilirubin 0.3 AST 47 ALT 25 Alkaline Phosphatase 58 Total Protein 6.5 Albumin 3.3 L Globulin 3.2 Albumin/Globulin Ratio 1.0 Discharge Plan Discharge Plan Patient Disposition: Home Discharge Med Rec/Prescriptions Prescriptions: New acetaminophen 325 mg Tablet 975 mg PO TID Qty: 0 RF: 0 aspirin 81 mg Tablet,Delayed Release (Dr/Ec) 81 mg PO BID Qty: 0 RF: 0 ascorbic acid (vitamin C) [Vitamin C] 500 mg Tablet 500 mg PO BID Qty: 0 RF: 0 ferrous sulfate 325 mg (65 mg iron) Tablet 325 mg PO BIDWM Qty: 0 RF: 0 docusate sodium 100 mg Capsule 100 mg PO BID Qty: 0 RF: 0 oxycodone 5 mg Tablet 5 mg PO Q4H PRN (Reason: Pain, Moderate (4-6)) Qty: 0 RF: 0 Continue multivitamin Tablet 1 tab PO DAILY RF: 0 furosemide 40 mg Tablet 40 mg PO DAILY RF: 0 diphenhydramine HCl 50 mg Capsule 50 mg PO BEDTIME PRN (Reason: Sleep) RF: 0 hydrocodone-acetaminophen 5-325 mg Tablet 1 tab PO Q6H PRN (Reason: Pain) RF: 0 simvastatin 40 mg Tablet 40 mg PO QPM RF: 0 tamsulosin 0.4 mg Capsule 0.4 mg PO BEDTIME RF: 0 hydrocortisone 2.5 % Cream 1 applic TOPICAL BID RF: 0 allopurinol 300 mg Tablet 300 mg PO DAILY RF: 0 albuterol sulfate 90 mcg/actuation Hfa Aerosol Inhaler 2 puff INHALATION PRN PRN (Reason: Wheezing) RF: 0 glipizide 5 mg Tablet 5 mg PO BID RF: 0 calcium citrate 200 mg (950 mg) Tablet 250 mg PO BID RF: 0 insulin aspart U-100 100 unit/mL Insulin Pen 6 units subcut SEEINSTR RF: 0 insulin glargine 100 unit/mL (3 mL) Insulin Pen 10 unit SUBCUT QAM RF: 0 insulin glargine 100 unit/mL (3 mL) Insulin Pen 20 unit SUBCUT QPM RF: 0 umeclidinium-vilanterol [Anoro Ellipta] 62.5-25 mcg/actuation Blister With Device 1 inh INHALATION Q24H RF: 0 vitamins A,C,E-dpch-llqsgh [PreserVision AREDS] 7,160-113-100 [id number] Tablet 2 tab PO BID RF: 0 Discontinued aspirin 81 mg Tablet,Delayed Release (Dr/Ec) 81 mg PO DAILY RF: 0 Follow up/Referrals: Barbara Corey MD [Physician] - (Follow up in the office at your previously scheduled post-operative appointment.) Provider Discharge Instructions Activity: Weightbearing as tolerated, follow posterior hip precautions Skin/Wound/Dressing Care Report to your healthcare provider any signs of infection, such as:: chills, fever, night sweats, increased pain, unusual drainage and unusual redness Dressing: Keep dressing clean, dry, and intact. May shower with dressing in place. Visit Report/Discharge Packet Instructions: DI for Hip Replacement Visit Report Forms: Congestive Heart Failure, Stroke Signs & Symptoms Discharge Data Attending Provider: Barbara Corey Admit Date/Time: 11/12/18 06:15 Discharges patient from system. Discharge Date/Time: 11/13/18 16:20 Quality VTE Deep Vein Thrombosis/Pulmonary Embolism Present on Admission: No
[2018-11-13 12:09] VITALS: BP 129/58; PULSE 82; RESP 21; TEMP 37.4; O2SAT 93
--- NOTE | 2018-11-13 12:20 | PT.IPTN ---
Current Diagnoses Morbid (severe) obesity due to excess calories (11/12/18) Obstructive sleep apnea (adult) (pediatric) (11/12/18) Chronic obstructive pulmonary disease, unspecified (11/12/18) Unspecified asthma, uncomplicated (11/12/18) Acute and chronic respiratory failure with hypoxia (11/12/18) Unilateral primary osteoarthritis, right hip (11/12/18) Cough (11/12/18) Shortness of breath (11/12/18) Encounter for other administrative examinations (11/12/18) Dependence on supplemental oxygen (11/12/18) Surgery Performed Operation Date: 11/12/18 07:45 Actual Procedures p Total Hip Arthroplasty(Right) - Barbara Corey MD Physical Therapy Treatment Note M2 PT-IP Current Condition Start: 11/12/18 16:00 Freq: NEEDED Status: Active Protocol: Document 11/12/18 14:10 AB (Rec: 11/12/18 16:13 AB [id number]) Physical Therapy Current Condition Current Condition Evaluation Date 11/12/18 Treatment Diagnosis s/p R JAYLON; difficulty in walking Onset Date 11/12/18 Precautions Posterior Hip Precautions No Hip Flexion > 90 degrees No Hip Internal Rotation No Hip Adduction Weight Bearing Status Weight Bearing Status Weight Bear as Tolerated M3 PT-IP Subjective Start: 11/12/18 16:00 Freq: NEEDED Status: Active Protocol: Document 11/13/18 09:16 LJ (Rec: 11/13/18 12:20 LJ [id number]) Subjective Physical Therapy Visit Type Type Treatment Note Visit Start Time 09:16 Visit Stop Time 09:39 Total Visit Minutes 23 Notes Pt was already up walking with nursing and DIL following with chair Therapy Pain Assessment Pain When Pain Assessed During Mobility Pain Present Pain Present Pain Reported M4 PT-IP Mobility and Gait Start: 11/12/18 16:00 Freq: NEEDED Status: Active Protocol: Document 11/13/18 09:16 LJ (Rec: 11/13/18 12:20 LJ [id number]) PT-Transfer Assessment Sit to and From Stand Sit to and from Stand Minimal Assistance 1 Person Assistance Use of Upper Extremities Equipment Transfer Assistive Device Gait Belt Front Wheeled Walker Transfers Transfer Destination Bed Transfer Technique pt ambulated and transferred to chair using FWW Transfer Ability Level of Assist Minimal Assistance 1 Person Assistance Use of Upper Extremities Comments Mobility Comments Pt requires Min assist for lifting RLE up to bed then min assist for bed positioning. Gait Assessment Gait Gait Assistance Required: Contact Guard Assist Distance (Feet) 80 Able to Maintain Weight Bearing Status Yes During Gait Assistive Devices Assistive Device Gait Belt Front Wheeled Walker Orthotic/Prosthetic Devices or Brace: No Gait Deviations General Gait Pattern Antalgic Decreased Stride Length Decreased Feet Clearance Flexed Trunk Factors Limiting Gait Function Factors Limiting Gait Function Decreased Activity Tolerance Decreased Strength Limited Range of Motion Pain Poor Balance Poor Safety Awareness Comments Gait Comments Pt ambulates in hallway with FWW CGA x 1 with chair following. Requires 2 standing rest breaks for several seconds each. Pt able to stand for 2 min to urinate at bedside. Requires min assist to lift LLE into bed and position body properly. M5 PT-IP Objective Assessments Start: 11/12/18 16:00 Freq: NEEDED Status: Active Protocol: Document 11/12/18 14:10 AB (Rec: 11/12/18 16:13 AB [id number]) Orientation Orientation/Cognition Level of Alertness Alert Orientation Name Age Birthday Month Date Year Day of Week Place Situation Safety Awareness Decreased Safety Awareness Memory Description Short Term Impaired Comments requires cues to recall hip precautions Gross Range of Motion Lower Extremity ROM Assessment Right Impaired Strength Lower Extremity Strength Assessment Right Impaired Hip 4-/5 Knee 3+/5 Sensation Assessment Sensation Gross Sensation WNL Muscle Tone Muscle Tone WNL Yes M6 PT-IP Treatment Start: 11/12/18 16:00 Freq: NEEDED Status: Active Protocol: Document 11/13/18 09:16 SUBHASH (Rec: 11/13/18 12:20 LJ [id number]) Physical Therapy Treatment Education Education Provided Precautions Weight Bearing Status Post-Op Packet Safety M7 PT-IP Assessment and Plan Start: 11/12/18 16:00 Freq: NEEDED Status: Active Protocol: Document 11/13/18 09:16 LJ (Rec: 11/13/18 12:20 LJ [id number]) PT Summary Assessment and Plan Potential Rehabilitation Potential Fair Status of Condition at Evaluation Stable Summary Impairments Pain ROM Strength Balance Coordination Sensation Tone Cognition Bed Mobility Transfers Gait Activity Tolerance Assessment Summary Pt requiring CGA to Min assist for transfers and ambulation. Will attempt stairs in afternoon and increase gait distance for d/c if possible Goals Bed Mobility Goal Standby Assistance Transfer Goal Standby Assistance Front Wheeled Walker Gait Goal Standby Assistance Front Wheel Walker Gait Distance 200 Other Goals up/down 3 steps with L rail ascending Days to Meet Goals 3 Frequency of Treatment Frequency Of Treatment Twice a Day Treatment Plan Physical Therapy Treatment Plan Bed Mobility Training Transfer Training Gait Training Therapeutic Exercise Balance Retraining Post Op Education Discharge Planning Hot or Cold Pack Neuromuscular Re-ed Coordination Retraining Manual Therapy Recommendations To Nursing Amount of Assist Needed 1 Person Assist Discharge Recommendations PT Discharge Recommendations Home with Assistance Outpatient PT
[2018-11-13] MEDS: ASCORBIC ACID 500 MG TABLET PO (12:56)
--- NOTE | 2018-11-13 15:50 | CM.IDA ---
Discharge Planning/Care Management CM Discharge Assessment Start: 11/13/18 15:43 Freq: Status: Active Protocol: Document 11/13/18 15:43 GLORIA (Rec: 11/13/18 15:50 GLORIA [id number]) Discharge Planning Assessment Assigned [employer] LARRY Remy DPOA/Assigned Designee Name Bhargavi Link, spouse Contact Information [phone], home Advance Directives? Yes Advance Directives on File No: [facility] History Provided By Patient Family Member Prior Living Arrangements House Household Members spouse Type of transporation used prior to Relies on Others admit Independent with ADL's Yes: Modified indp., uses cane Is patient alert and oriented? Yes Needs Assistance With Home Chores / Shopping Barriers to Discharge No Comment Met w/pt and his dtr in law briefly before DC home. Dtr in law is a physical therapist. Pt/family feel confident about pt's return home today and PT has recommended return home w /family and outpt PT. Pt has approx 4 people available at least this week to assist as needed. No SW needs identified today before pt's DC home. Discharge Plan Home Transportation Arrangement Family Referrals Initiated None needed Whiteboard Updated in Patient Room with Yes name and ext. # of [employer]shore D[employer] Review Status In Process
--- NOTE | 2018-11-13 15:56 | PT.IPTN ---
Current Diagnoses Morbid (severe) obesity due to excess calories (11/12/18) Obstructive sleep apnea (adult) (pediatric) (11/12/18) Chronic obstructive pulmonary disease, unspecified (11/12/18) Unspecified asthma, uncomplicated (11/12/18) Acute and chronic respiratory failure with hypoxia (11/12/18) Unilateral primary osteoarthritis, right hip (11/12/18) Cough (11/12/18) Shortness of breath (11/12/18) Encounter for other administrative examinations (11/12/18) Dependence on supplemental oxygen (11/12/18) Surgery Performed Operation Date: 11/12/18 07:45 Actual Procedures p Total Hip Arthroplasty(Right) - Barbara Corey MD Physical Therapy Treatment Note M2 PT-IP Current Condition Start: 11/12/18 16:00 Freq: NEEDED Status: Active Protocol: Document 11/12/18 14:10 AB (Rec: 11/12/18 16:13 AB [id number]) Physical Therapy Current Condition Current Condition Evaluation Date 11/12/18 Treatment Diagnosis s/p R JAYLON; difficulty in walking Onset Date 11/12/18 Precautions Posterior Hip Precautions No Hip Flexion > 90 degrees No Hip Internal Rotation No Hip Adduction Weight Bearing Status Weight Bearing Status Weight Bear as Tolerated M3 PT-IP Subjective Start: 11/12/18 16:00 Freq: NEEDED Status: Active Protocol: Document 11/13/18 14:12 LJ (Rec: 11/13/18 15:56 LJ [id number]) Subjective Physical Therapy Visit Type Type Treatment Note Visit Start Time 14:12 Visit Stop Time 14:36 Total Visit Minutes 24 Notes Pt ready for discharge waiting on bed to do stair training. Therapy Pain Assessment Pain When Pain Assessed During Mobility Pain Present Pain Present Pain Reported M4 PT-IP Mobility and Gait Start: 11/12/18 16:00 Freq: NEEDED Status: Active Protocol: Document 11/13/18 14:12 LJ (Rec: 11/13/18 15:56 LJ [id number]) PT-Transfer Assessment Sit to and From Stand Sit to and from Stand Contact Guard Assistance 1 Person Assistance Use of Upper Extremities Equipment Transfer Assistive Device Gait Belt Front Wheeled Walker Transfers Transfer Destination Bed Transfer Technique Stand Step Pivot Transfer Ability Level of Assist Contact Guard Assistance 1 Person Assistance Use of Upper Extremities Comments Mobility Comments Pt seated on EOB requiring CGA for sit<>stand. Gait Assessment Gait Gait Assistance Required: Contact Guard Assist Distance (Feet) 100 Able to Maintain Weight Bearing Status Yes During Gait Assistive Devices Assistive Device Gait Belt Front Wheeled Walker Orthotic/Prosthetic Devices or Brace: No Gait Deviations General Gait Pattern Antalgic Decreased Stride Length Decreased Feet Clearance Flexed Trunk Factors Limiting Gait Function Factors Limiting Gait Function Decreased Activity Tolerance Decreased Strength Limited Range of Motion Pain Poor Balance Poor Safety Awareness Comments Gait Comments Pt ambulated in hallway 100' demonstrating improved posture and equal step distance no rest breaks. Stair Climbing Assessment Evaluation Level of Assist On Stairs Contact Guard Assistance Devices Stair Climbing Assistive Devices Left Railing Technique/Endurance Stair Climbing Direction Ascend and Descend Stair Climbing Technique Step to Step Number of Steps Climbed 3 Query Text: Stair Climbing Set # Repetitions (reps) 2 Comments Stair Climbing Comments Pt using bilat handrails and step to pattern. Satisfactory for d/c home. M5 PT-IP Objective Assessments Start: 11/12/18 16:00 Freq: NEEDED Status: Active Protocol: Document 11/12/18 14:10 AB (Rec: 11/12/18 16:13 AB [id number]) Orientation Orientation/Cognition Level of Alertness Alert Orientation Name Age Birthday Month Date Year Day of Week Place Situation Safety Awareness Decreased Safety Awareness Memory Description Short Term Impaired Comments requires cues to recall hip precautions Gross Range of Motion Lower Extremity ROM Assessment Right Impaired Strength Lower Extremity Strength Assessment Right Impaired Hip 4-/5 Knee 3+/5 Sensation Assessment Sensation Gross Sensation WNL Muscle Tone Muscle Tone WNL Yes M6 PT-IP Treatment Start: 11/12/18 16:00 Freq: NEEDED Status: Active Protocol: Document 11/13/18 14:12 (Rec: 11/13/18 15:56 LJ [id number]) Physical Therapy Treatment Education Education Provided Precautions Weight Bearing Status Post-Op Packet Safety M7 PT-IP Assessment and Plan Start: 11/12/18 16:00 Freq: NEEDED Status: Active Protocol: Document 11/13/18 14:12 SUBHASH (Rec: 11/13/18 15:56 LJ [id number]) PT Summary Assessment and Plan Summary Impairments Pain ROM Strength Balance Coordination Sensation Tone Cognition Bed Mobility Transfers Gait Activity Tolerance Assessment Summary Pt requiring CGA for ambulation and transfers. Improved gait pattern during ambulation in hallway. Pt increased distance and did not take rest breaks. Goals Bed Mobility Goal Standby Assistance Transfer Goal Standby Assistance Front Wheeled Walker Gait Goal Standby Assistance Front Wheel Walker Gait Distance 200 Other Goals up/down 3 steps with L rail ascending Days to Meet Goals 3 Frequency of Treatment Frequency Of Treatment Twice a Day Treatment Plan Physical Therapy Treatment Plan Bed Mobility Training Transfer Training Gait Training Therapeutic Exercise Balance Retraining Post Op Education Discharge Planning Hot or Cold Pack Neuromuscular Re-ed Coordination Retraining Manual Therapy Recommendations To Nursing Amount of Assist Needed 1 Person Assist Discharge Recommendations PT Discharge Recommendations Home with Assistance Outpatient PT
--- NOTE | 2018-11-13 15:58 | PT.IPTN ---
Current Diagnoses Morbid (severe) obesity due to excess calories (11/12/18) Obstructive sleep apnea (adult) (pediatric) (11/12/18) Chronic obstructive pulmonary disease, unspecified (11/12/18) Unspecified asthma, uncomplicated (11/12/18) Acute and chronic respiratory failure with hypoxia (11/12/18) Unilateral primary osteoarthritis, right hip (11/12/18) Cough (11/12/18) Shortness of breath (11/12/18) Encounter for other administrative examinations (11/12/18) Dependence on supplemental oxygen (11/12/18) Surgery Performed Operation Date: 11/12/18 07:45 Actual Procedures p Total Hip Arthroplasty(Right) - Barbara Corey MD Physical Therapy Treatment Note M2 PT-IP Current Condition Start: 11/12/18 16:00 Freq: NEEDED Status: Active Protocol: Document 11/12/18 14:10 AB (Rec: 11/12/18 16:13 AB [id number]) Physical Therapy Current Condition Current Condition Evaluation Date 11/12/18 Treatment Diagnosis s/p R JAYLON; difficulty in walking Onset Date 11/12/18 Precautions Posterior Hip Precautions No Hip Flexion > 90 degrees No Hip Internal Rotation No Hip Adduction Weight Bearing Status Weight Bearing Status Weight Bear as Tolerated M3 PT-IP Subjective Start: 11/12/18 16:00 Freq: NEEDED Status: Active Protocol: Document 11/13/18 14:12 LJ (Rec: 11/13/18 15:56 LJ [id number]) Subjective Physical Therapy Visit Type Type Treatment Note Visit Start Time 14:12 Visit Stop Time 14:36 Total Visit Minutes 24 Notes Pt ready for discharge waiting on bed to do stair training. Therapy Pain Assessment Pain When Pain Assessed During Mobility Pain Present Pain Present Pain Reported M4 PT-IP Mobility and Gait Start: 11/12/18 16:00 Freq: NEEDED Status: Active Protocol: Document 11/13/18 14:12 LJ (Rec: 11/13/18 15:56 LJ [id number]) PT-Transfer Assessment Sit to and From Stand Sit to and from Stand Contact Guard Assistance 1 Person Assistance Use of Upper Extremities Equipment Transfer Assistive Device Gait Belt Front Wheeled Walker Transfers Transfer Destination Bed Transfer Technique Stand Step Pivot Transfer Ability Level of Assist Contact Guard Assistance 1 Person Assistance Use of Upper Extremities Comments Mobility Comments Pt seated on EOB requiring CGA for sit<>stand. Gait Assessment Gait Gait Assistance Required: Contact Guard Assist Distance (Feet) 100 Able to Maintain Weight Bearing Status Yes During Gait Assistive Devices Assistive Device Gait Belt Front Wheeled Walker Orthotic/Prosthetic Devices or Brace: No Gait Deviations General Gait Pattern Antalgic Decreased Stride Length Decreased Feet Clearance Flexed Trunk Factors Limiting Gait Function Factors Limiting Gait Function Decreased Activity Tolerance Decreased Strength Limited Range of Motion Pain Poor Balance Poor Safety Awareness Comments Gait Comments Pt ambulated in hallway 100' demonstrating improved posture and equal step distance no rest breaks. Stair Climbing Assessment Evaluation Level of Assist On Stairs Contact Guard Assistance Devices Stair Climbing Assistive Devices Left Railing Technique/Endurance Stair Climbing Direction Ascend and Descend Stair Climbing Technique Step to Step Number of Steps Climbed 3 Query Text: Stair Climbing Set # Repetitions (reps) 2 Comments Stair Climbing Comments Pt using bilat handrails and step to pattern. Satisfactory for d/c home. M5 PT-IP Objective Assessments Start: 11/12/18 16:00 Freq: NEEDED Status: Active Protocol: Document 11/12/18 14:10 AB (Rec: 11/12/18 16:13 AB [id number]) Orientation Orientation/Cognition Level of Alertness Alert Orientation Name Age Birthday Month Date Year Day of Week Place Situation Safety Awareness Decreased Safety Awareness Memory Description Short Term Impaired Comments requires cues to recall hip precautions Gross Range of Motion Lower Extremity ROM Assessment Right Impaired Strength Lower Extremity Strength Assessment Right Impaired Hip 4-/5 Knee 3+/5 Sensation Assessment Sensation Gross Sensation WNL Muscle Tone Muscle Tone WNL Yes M6 PT-IP Treatment Start: 11/12/18 16:00 Freq: NEEDED Status: Active Protocol: Document 11/13/18 14:12 (Rec: 11/13/18 15:56 LJ [id number]) Physical Therapy Treatment Education Education Provided Precautions Weight Bearing Status Post-Op Packet Safety M7 PT-IP Assessment and Plan Start: 11/12/18 16:00 Freq: NEEDED Status: Active Protocol: Document 11/13/18 14:12 SUBHASH (Rec: 11/13/18 15:56 LJ [id number]) PT Summary Assessment and Plan Summary Impairments Pain ROM Strength Balance Coordination Sensation Tone Cognition Bed Mobility Transfers Gait Activity Tolerance Assessment Summary Pt requiring CGA for ambulation and transfers. Improved gait pattern during ambulation in hallway. Pt increased distance and did not take rest breaks. Goals Bed Mobility Goal Standby Assistance Transfer Goal Standby Assistance Front Wheeled Walker Gait Goal Standby Assistance Front Wheel Walker Gait Distance 200 Other Goals up/down 3 steps with L rail ascending Days to Meet Goals 3 Frequency of Treatment Frequency Of Treatment Twice a Day Treatment Plan Physical Therapy Treatment Plan Bed Mobility Training Transfer Training Gait Training Therapeutic Exercise Balance Retraining Post Op Education Discharge Planning Hot or Cold Pack Neuromuscular Re-ed Coordination Retraining Manual Therapy Recommendations To Nursing Amount of Assist Needed 1 Person Assist Discharge Recommendations PT Discharge Recommendations Home with Assistance Outpatient PT
--- NOTE | 2018-11-13 16:22 | PC.NURSE ---
Pt discharged to home with family. Driven home by son. Understands all discharge instructions. Dressing CDI and CEDRIC drain in good working order. F/U appointment on the . Has all belongings. In no acute distress. Escorted to front lobby in wheelchair by ICU staff.
== END 2018-11-13 16:20 | disposition home or self-care (01) | DRG 470 ==
LOC: AC 07:32 → ICU 11:18
PROVIDERS: Internal Medicine; Admitting Provider Orthopaedic Surgery; Visit Provider Orthopaedic Surgery
PROC: 0SR90JZ Replacement of Right Hip Joint with Synthetic Substitute, Open Approach (ICD-10-PCS; CPT 27130; principal; 2018-11-12 07:45)
DX: M16.11 Unilateral primary osteoarthritis, right hip (principal); Z68.41 Body mass index [BMI] 40.0-44.9, adult; I45.2 Bifascicular block; E66.2 Morbid (severe) obesity with alveolar hypoventilation; E11.22 Type 2 diabetes mellitus with diabetic chronic kidney disease; N18.3 Chronic kidney disease, stage 3 (moderate); Z79.4 Long term (current) use of insulin; I35.0 Nonrheumatic aortic (valve) stenosis; G47.33 Obstructive sleep apnea (adult) (pediatric); D50.9 Iron deficiency anemia, unspecified; J42 Unspecified chronic bronchitis; M06.9 Rheumatoid arthritis, unspecified; Z87.891 Personal history of nicotine dependence; Z96.642 Presence of left artificial hip joint; N40.0 Benign prostatic hyperplasia without lower urinary tract symptoms
CPT/HCPCS: 36415; 72170; 73502; 80053; 82962; 85025; 94640; 97116; 97161; 97530; C1776; C9290; J0171; J0330; J0690; J1170; J2250; J2405; J2704; J3370